=== PATIENT | female | born 1955 | race Caucasian/White ===

== ENCOUNTER 2016-05-24 16:03 | Emergency (ER) | payer OTHER ==
[2016-05-24 16:20] VITALS: BP 114/73
--- NOTE | 2016-05-24 18:08 | RAD ---
INDICATION: Right shoulder pain. TECHNIQUE: 3 views of the right shoulder were obtained. FINDINGS: The patient is status post right shoulder replacement surgery. The bones and prostheses are in normal alignment. No fracture is seen. There is widening of the acromioclavicular joint space possibly related to the patient's prior surgery or traumatic AC separation. IMPRESSION: 1. STATUS POST RIGHT SHOULDER ARTHROPLASTY. 2. WIDENING OF THE RIGHT ACROMIOCLAVICULAR JOINT NOTED.
[2016-05-24] MEDS ORDERED: Ketorolac INJ* 60 MG/2 ML VIAL IM ONE (18:57)
--- NOTE | 2016-05-24 19:42 | ED ---
Upper Extremity Pain - HPI Summary HPI Summary: 60 female presents with complains of right shoulder pain that occurred yesterday 05/24/16 while twisting and landing on it while getting into a chair. Patient had shoulder surgery in april and did not have any complications until now. She states the pain has caused her to lose ROM and point to her AC joint. She tried taking her prescribed percocet at home with little relief. She is here requesting an x-ray. She has an appointment with her orthopedic surgeon tomorrow morning. No other complaints denies weakness, numbness and tingling. No other complaints or injuries at this time. - History of Current Complaint Chief Complaint: EDExtremityUpper Stated Complaint: SHOULDER PAIN AFTER SURGERY Time Seen by Provider: 05/24/16 17:27 Hx Obtained From: Patient Mechanism Of Injury: Twisted Onset/Duration: Started Days Ago, Still Present Timing: Constant Severity Initially: Moderate Severity Currently: Moderate Pain Location: Shoulder Character: Aching, Throbbing, Stiffness Aggravating Factor(s): Movement Alleviating Factor(s): Rest Associated Signs & Symptoms: Positive: Negative - Allergies/Home Medications Allergies/Adverse Reactions: Allergies Allergy/AdvReac Type Severity Reaction Status Date / Time Bee Venom Allergy Severe Difficulty Verified 08/23/15 11:45 Breathing Adhesive Tape Allergy Hives Verified 08/23/15 11:45 Iodinated Contrast Media Allergy Rash Verified 08/23/15 11:45 [CONTRAST DYE] Penicillins Allergy Anaphylatic Verified 08/23/15 11:45 Shock Cephalexin AdvReac Diarrhea Verified 08/23/15 11:45 shrimp Allergy Severe Difficulty Uncoded 08/23/15 11:45 Breathing PMH/Surg Hx/FS Hx/Imm Hx Endocrine/Hematology History: Reports: Hx Anticoagulant Therapy Denies: Hx Diabetes, Hx Thyroid Disease Cardiovascular History: Reports: Hx Hypertension Denies: Hx Pacemaker/ICD Respiratory History: Denies: Hx Asthma, Hx Chronic Obstructive Pulmonary Disease (COPD) History: Denies: Hx Dialysis, Hx Renal Disease - ONE KIDNEY - DONATED TO FAMILY Musculoskeletal History: Denies: Hx Rheumatoid Arthritis, Hx Osteoporosis Sensory History: Denies: Hx Hearing Aid Neurological History: Denies: Hx Dementia, Hx Seizures Psychiatric History: Denies: Hx Panic Disorder, Hx Substance Abuse - Cancer History Cancer Type, 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 crainiotomy as well, spinal fusions, LEFT knee replacement 2007, bone grafts, nephrectomy ( DONATED A KIDNEY TO BROTHER); HEMORHOIDECTOMY - Immunization History Date of Tetanus Vaccine: [facility] Date of Influenza Vaccine: 12/2012 Infectious Disease History: Yes Infectious Disease History: Reports: Hx Hepatitis, Hx of Known/Suspected MRSA - thumb Denies: Hx Human Immunodeficiency Virus (HIV), History Other Infectious Disease, Traveled Outside the [place] in Last 30 Days - Social History Alcohol Use: Rare Substance Use Type: Reports: None Substance Use Comment - Amount & Last Used: HX of ETOH, opiate abuse, last use may 2014 Smoking Status (MU): Light Every Day Tobacco Smoker Type: Cigarettes Amount Used/How Often: 3-4 cig./day Review of Systems Constitutional: Negative Cardiovascular: Negative Respiratory: Negative Gastrointestinal: Negative Genitourinary: Negative Positive: Arthralgia, Myalgia, Decreased ROM - right shoulder Skin: Negative Neurological: Negative Psychological: Normal All Other Systems Reviewed And Are Negative: Yes Physical Exam Triage Information Reviewed: Yes Vital Signs On Initial Exam: Initial Vitals Temp Pulse Resp BP Pulse Ox 98.9 F 59 16 114/73 95 05/24/16 16:16 05/24/16 16:16 05/24/16 16:16 05/24/16 16:16 05/24/16 16:16 Vital Signs Reviewed: Yes Appearance: Positive: Well-Appearing, No Pain Distress, Well-Nourished, Pain Distress - mild when changing position or moving shoulder Skin: Positive: Warm, Skin Color Reflects Adequate Perfusion, Dry Head/Face: Positive: Normal Head/Face Inspection Eyes: Positive: Normal ENT: Positive: Hearing grossly normal Neck: Positive: Supple, Nontender Respiratory/Lung Sounds: Positive: Clear to Auscultation, Breath Sounds Present , Wheezes - throughout, patient is a smoker Cardiovascular: Positive: Normal, RRR, Pulses are Symmetrical in both Upper and Lower Extremities - 2+ radial pulses bilaterally Musculoskeletal: Positive: Limited @ - ROM with flexion extension abduction/ adduction of right shoulder due to pain. passive ROM also causes pain., Pain @ - right shoulder, Other - strenght of forearem and hands intact. sensation and skin intact. no obvious deformities or crepitus, step-off noted. AC joint is slightly more prominent when compared to the left shoudler. Negative: Interruption @, Edema Left, Edema Right Neurological: Positive: Normal, Sensory/Motor Intact, Alert, Oriented to Person Place, Time, CN Intact II-III, Reflexes Intact, NV Bundle Intact Distally, Normal Gait Psychiatric: Positive: Normal, Affect/Mood Appropriate Diagnostics - Vital Signs Vital Signs Temp Pulse Resp BP Pulse Ox 05/24/16 16:16 98.9 F 59 16 114/73 95 - Laboratory Lab Statement: Any lab studies that have been ordered have been reviewed, and results considered in the medical decision making process. - Radiology right shoulder x-ray Xray Interpretation: Positive (See Comments) - status post right shoulder arthroplasty widening of the right AC joint possibly related to prior shoulder surgery or traumatic ac seperation Radiology Interpretation Completed By: Radiologist Re-Evaluation - Re-Evaluation First Eval Re-Evaluation Time: 17:35 Change: Improved - patient felt some relief after toradol Course/Dx - Course Course Of Treatment: patient was given toradol for pain. x-ray obtained and possibly positive for AC joint speration unknown if it is due to recent shoulder arthroplasty. A CD was burned with images for orthopedic appointment patient has tomorrow. Went to give shoulder sling, CD and discharge paperwork however patient had left before recieving these. - Diagnoses Differential Diagnosis/HQI/PQRI: Positive: Arthritis, Fracture (Closed), Strain , Sprain, Other Provider Diagnoses: Shoulder pain, Acromioclavicular joint separation Discharge - Discharge Plan Condition: Stable Disposition: HOME Patient Education Materials: Shoulder Pain (ED), Acromioclavicular Separation ( GEN) Referrals: Horacio Bautista MD [Primary Care Provider] - Additional Instructions: Follow up with your orthopedic surgeon at your appointment tomorrow for further evaluation. Wear sling until then. Take your prescribed pain medication to help with pain. Ice and rest. If symptoms worsen please seek medical attention or return promptly.
== END 2016-05-24 20:25 | disposition home or self-care (01) ==
LOC: ED 16:03
DX: S43.101A Unspecified dislocation of right acromioclavicular joint, initial encounter (principal); M25.511 Pain in right shoulder; Z87.891 Personal history of nicotine dependence; W19.XXXA Unspecified fall, initial encounter; Y93.89 Activity, other specified; Y92.89 Other specified places as the place of occurrence of the external cause; Z88.0 Allergy status to penicillin
CPT/HCPCS: 96374; 99281; J1885

== ENCOUNTER 2016-08-29 20:21 | Emergency (ER) | payer OTHER ==
[2016-08-29] MEDS ORDERED: NS 0.9% 1000 ML* 1,000 ML IV ONE (21:23)
[2016-08-29 21:33] LABS: Hematocrit 37 % (35-47); Hemoglobin 12.3 g/dl (12.0-16.0); Mean Corpuscular HGB Conc 33 g/dl (31-36); Mean Corpuscular Hemoglobin 30 pg (27-31); Mean Corpuscular Volume 89 fL (80-97); Mean Platelet Volume 9 um3 (7.4-10.4); Red Blood Count 4.17 10^6/ul (4.0-5.4); Red Cell Distribution Width 14 % (10.5-15); White Blood Count 6.7 10^3/ul (3.5-10.8)
--- NOTE | 2016-08-29 21:45 | RAD ---
INDICATION: Altered mental status. Near-syncope. COMPARISON: October 07, 2014 TECHNIQUE: An AP portable view obtained at 2127 hours is submitted. FINDINGS: Bones/Soft Tissues: There are no acute bony findings. There is right shoulder arthroplasty. There is prior cervical fusion. Cardiomediastinal: The cardiomediastinal silhouette is normal. Lungs: There are no infiltrates. Pleura: There are no pleural effusions. Other: None IMPRESSION: NO ACTIVE DISEASE.
[2016-08-29 21:47] LABS: Troponin I 0.01 ng/mL (<0.04)
[2016-08-29 21:57] LABS: ALT 11 U/L (7-52); AST 18 U/L (13-39); Albumin 3.7 g/dL (3.2-5.2); Alkaline Phosphatase 60 U/L (34-104); Anion Gap 8 mmol/L (2-11); BUN/Creatinine Ratio 13.3 (8-20); Blood Urea Nitrogen 17 mg/dL (6-24); CO2 Carbon Dioxide 28 mmol/L (22-32); Calcium 9.1 mg/dL (8.6-10.3); Chloride 94 mmol/L (101-111); Creatine Kinase 89 U/L (10-223); EGFR African American 54.7 (>60); EGFR Non-African American 42.5 (>60); Globulin 2.7 g/dL (2-4); Glucose 89 mg/dL (70-100); Potassium 3.4 mmol/L (3.5-5.0); Sodium 130 mmol/L (133-145); TSH (Thyroid Stimulating Horm) 2.34 mcIU/mL (0.34-5.60); Total Protein 6.4 g/dL (6.4-8.9)
[2016-08-29 22:00] LABS: Acetaminophen < 15 mcg/mL; Alcohol 95 mg/dL (<10); Salicylate < 2.50 mg/dL (<30)
--- NOTE | 2016-08-29 22:08 | RAD ---
INDICATION: Dizziness COMPARISON: MRI brain July 29, 2015 TECHNIQUE: Noncontrast axial source images were acquired from the skull base to the vertex. FINDINGS: Ventricles/sulci: The ventricles and cisterns are normal in size and configuration for age. Brain parenchyma: There is no focal parenchymal finding, evidence of intracranial mass, or intracranial mass effect. Intracranial hemorrhage:None. Extra-axial spaces: There is a small meningioma adjacent to the left clinoid process better imaged on the earlier MRI. The lesion is stable. Calvarium: There is no calvarial fracture or other calvarial abnormality. Scalp: There is no evidence of scalp or extracalvarial soft tissue abnormality. Paranasal sinuses/mastoid: The paranasal sinuses and mastoid air cells are clear. Other: None. IMPRESSION: SMALL LEFT ANTERIOR CLINOID MENINGIOMA, UNCHANGED. NO ACUTE INTRACRANIAL FINDINGS.
[2016-08-30 00:07] VITALS: BP 133/89
--- NOTE | 2016-08-30 00:41 | ED ---
Nathaniel Reeves Benjamin, scribed for Moni Nieves MD on 08/29/16 at 2112 . Dizziness - HPI Summary HPI Summary: 60yo female comes to ED today for feeling near syncopal and low BP. Pt was at her PCP Dr. Garcia office for a regular BP check, but had to leave without being seen due to other obligations. Today, pt felt like passing out, and had measured BP of 74/42. Pt called Dr. Bautista and was advised to come to the ED for evaluation. Dr. Bautitsa stated pt is on Ramipril 2.5mg qd, atenolol 50qd, chlorthalidone 50qd. Pt admits ETOH ingestion today, states "one beer". - History Of Current Complaint Chief Complaint: EDDizziness Stated Complaint: LOW BP Time Seen by Provider: 08/29/16 20:35 Hx Obtained From: Patient, Family/Hr Associate - "housemate" Onset/Duration: Suddenly Timing: Constant Severity Initially: Severe Severity Currently: Moderate Character: Weak - "almost passed out" Aggravating Factor(s): Nothing Alleviating Factor(s): Nothing Associated Signs And Symptoms: Positive: Other: - low blood pressure at home "66 /40" - Risk Factors Cardiac Risk Factors: Hypertension, Smoking CVA Risk Factor: Hypertension, Smoking - Allergies/Home Medications Allergies/Adverse Reactions: Allergies Allergy/AdvReac Type Severity Reaction Status Date / Time Bee Venom Allergy Severe Difficulty Verified 08/23/15 11:45 Breathing Adhesive Tape Allergy Hives Verified 08/23/15 11:45 Iodinated Contrast Media Allergy Rash Verified 08/23/15 11:45 [CONTRAST DYE] Penicillins Allergy Anaphylatic Verified 08/23/15 11:45 Shock Cephalexin AdvReac Diarrhea Verified 08/23/15 11:45 shrimp Allergy Severe Difficulty Uncoded 08/23/15 11:45 Breathing PMH/Surg Hx/FS Hx/Imm Hx Previously Healthy: No - meningioma , on methadone Endocrine/Hematology History: Denies: Hx Diabetes, Hx Thyroid Disease Cardiovascular History: Reports: Hx Hypertension Denies: Hx Pacemaker/ICD Respiratory History: Denies: Hx Asthma, Hx Chronic Obstructive Pulmonary Disease (COPD) History: Denies: Hx Dialysis, Hx Renal Disease - ONE KIDNEY - DONATED TO FAMILY Musculoskeletal History: Denies: Hx Rheumatoid Arthritis, Hx Osteoporosis Sensory History: Denies: Hx Hearing Aid Neurological History: Denies: Hx Dementia, Hx Seizures Psychiatric History: Denies: Hx Panic Disorder, Hx Substance Abuse - Cancer History Cancer Type, 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 crainiotomy as well, spinal fusions, LEFT knee replacement 2007, bone grafts, nephrectomy ( DONATED A KIDNEY TO BROTHER); HEMORHOIDECTOMY - Immunization History Date of Tetanus Vaccine: [facility] Date of Influenza Vaccine: 12/2012 Infectious Disease History: No Infectious Disease History: Reports: Hx Hepatitis, Hx of Known/Suspected MRSA - thumb Denies: Hx Human Immunodeficiency Virus (HIV), History Other Infectious Disease, Traveled Outside the [place] in Last 30 Days - Social History Occupation: Disabled Lives: With Family - with roommate Alcohol Use: Rare Substance Use Type: Reports: None Substance Use Comment - Amount & Last Used: HX of ETOH, opiate abuse, last use may 2014 Smoking Status (MU): Light Every Day Tobacco Smoker Type: Cigarettes Amount Used/How Often: 3-4 cig./day Review of Systems Constitutional: Negative Eyes: Negative ENT: Negative Positive: Other - low BP Respiratory: Negative Gastrointestinal: Negative Genitourinary: Negative Musculoskeletal: Negative Skin: Negative Neurological: Other - dizziness Psychological: Normal All Other Systems Reviewed And Are Negative: Yes Physical Exam Triage Information Reviewed: Yes Vital Signs On Initial Exam: Initial Vitals Temp Pulse Resp BP Pulse Ox 98.2 F 52 16 94/51 95 08/29/16 20:23 08/29/16 20:23 08/29/16 20:23 08/29/16 20:23 08/29/16 20:23 Vital Signs Reviewed: Yes Appearance: Positive: No Pain Distress, Well-Nourished, Ill-Appearing - pt prefers eyes closed Skin: Positive: Skin Color Reflects Adequate Perfusion Head/Face: Positive: Normal Head/Face Inspection Eyes: Positive: Conjunctiva Clear ENT: Positive: Hearing grossly normal. Negative: Muffled/hoarse voice Neck: Positive: Supple Respiratory/Lung Sounds: Positive: Clear to Auscultation, Breath Sounds Present Cardiovascular: Positive: Pulses are Symmetrical in both Upper and Lower Extremities, Bradycardia. Negative: Murmur, Rub, Leg Edema Left, Leg Edema Right Abdomen Description: Positive: Nontender, Soft. Negative: Distended, Guarding, McBurney's Point Tenderness, Peritoneal Signs, Pulsatile Mass Musculoskeletal: Positive: Strength/ROM Intact. Negative: Edema Left, Edema Right Neurological: Positive: Sensory/Motor Intact, Alert, Oriented to Person Place, Time, CN Intact II-III - prefers eyes closed,. Negative: Facial Droop, Focal Deficit @, Slurred Speech Psychiatric: Positive: Normal Diagnostics - Vital Signs Vital Signs Temp Pulse Resp BP Pulse Ox 08/29/16 20:34 98.0 F 50 17 103/52 95 08/29/16 20:23 98.2 F 52 16 94/51 95 - Laboratory Lab Results: Lab Results 08/29/16 08/29/16 08/29/16 Range/Units 20:38 20:38 20:38 WBC 6.7 (3.5-10.8) 10^3/ul RBC 4.17 (4.0-5.4) 10^6/ul Hgb 12.3 (12.0-16.0) g/dl Hct 37 (35-47) % MCV 89 (80-97) fL MCH 30 (27-31) pg MCHC 33 (31-36) g/dl RDW 14 (10.5-15) % Plt Count 221 (150-450) 10^3/ul MPV 9 (7.4-10.4) um3 Neut % (Auto) 54.1 (38-83) % Lymph % (Auto) 32.1 (25-47) % [place] % (Auto) 8.0 (1-9) % Eos % (Auto) 5.1 (0-6) % Baso % (Auto) 0.7 (0-2) % Absolute Neuts (auto) 3.6 (1.5-7.7) 10^3/ul Absolute Lymphs (auto) 2.1 (1.0-4.8) 10^3/ul Absolute Monos (auto) 0.5 (0-0.8) 10^3/ul Absolute Eos (auto) 0.3 (0-0.6) 10^3/ul Absolute Basos (auto) 0 (0-0.2) 10^3/ul Absolute Nucleated RBC 0.01 10^3/ul Nucleated RBC % 0.1 INR (Anticoag Therapy) (0.89-1.11) Sodium 130 L (133-145) mmol/L Potassium 3.4 L (3.5-5.0) mmol/L Chloride 94 L (101-111) mmol/L Carbon Dioxide 28 (22-32) mmol/L Anion Gap 8 (2-11) mmol/L BUN 17 (6-24) mg/dL Creatinine 1.28 H (0.51-0.95) mg/dL Est GFR ( Amer) 54.7 (>60) Est GFR (Non-Af Amer) 42.5 (>60) BUN/Creatinine Ratio 13.3 (8-20) Glucose 89 (70-100) mg/dL Lactic Acid 1.2 (0.5-2.0) mmol/L Calcium 9.1 (8.6-10.3) mg/dL Magnesium 2.0 (1.9-2.7) mg/dL Total Bilirubin 0.40 (0.2-1.0) mg/dL AST 18 (13-39) U/L ALT 11 (7-52) U/L Alkaline Phosphatase 60 (34-104) U/L Ammonia (16-53) mol/L Total Creatine Kinase 89 (10-223) U/L Troponin I 0.01 (<0.04) ng/mL Total Protein 6.4 (6.4-8.9) g/dL Albumin 3.7 (3.2-5.2) g/dL Globulin 2.7 (2-4) g/dL Albumin/Globulin Ratio 1.4 (1-3) TSH 2.34 (0.34-5.60) mcIU/mL Salicylates < 2.50 (<30) mg/dL Acetaminophen < 15 mcg/mL Serum Alcohol 95 H (<10) mg/dL 08/29/16 08/29/16 Range/Units 20:38 20:38 WBC (3.5-10.8) 10^3/ul RBC (4.0-5.4) 10^6/ul Hgb (12.0-16.0) g/dl Hct (35-47) % MCV (80-97) fL MCH (27-31) pg MCHC (31-36) g/dl RDW (10.5-15) % Plt Count (150-450) 10^3/ul MPV (7.4-10.4) um3 Neut % (Auto) (38-83) % Lymph % (Auto) (25-47) % [place] % (Auto) (1-9) % Eos % (Auto) (0-6) % Baso % (Auto) (0-2) % Absolute Neuts (auto) (1.5-7.7) 10^3/ul Absolute Lymphs (auto) (1.0-4.8) 10^3/ul Absolute Monos (auto) (0-0.8) 10^3/ul Absolute Eos (auto) (0-0.6) 10^3/ul Absolute Basos (auto) (0-0.2) 10^3/ul Absolute Nucleated RBC 10^3/ul Nucleated RBC % INR (Anticoag Therapy) 0.94 (0.89-1.11) Sodium (133-145) mmol/L Potassium (3.5-5.0) mmol/L Chloride (101-111) mmol/L Carbon Dioxide (22-32) mmol/L Anion Gap (2-11) mmol/L BUN (6-24) mg/dL Creatinine (0.51-0.95) mg/dL Est GFR ( Amer) (>60) Est GFR (Non-Af Amer) (>60) BUN/Creatinine Ratio (8-20) Glucose (70-100) mg/dL Lactic Acid (0.5-2.0) mmol/L Calcium (8.6-10.3) mg/dL Magnesium (1.9-2.7) mg/dL Total Bilirubin (0.2-1.0) mg/dL AST (13-39) U/L ALT (7-52) U/L Alkaline Phosphatase (34-104) U/L Ammonia 53 (16-53) mol/L Total Creatine Kinase (10-223) U/L Troponin I (<0.04) ng/mL Total Protein (6.4-8.9) g/dL Albumin (3.2-5.2) g/dL Globulin (2-4) g/dL Albumin/Globulin Ratio (1-3) TSH (0.34-5.60) mcIU/mL Salicylates (<30) mg/dL Acetaminophen mcg/mL Serum Alcohol (<10) mg/dL Result Diagrams: 08/29/16 20:38 08/29/16 20:38 Lab Statement: Any lab studies that have been ordered have been reviewed, and results considered in the medical decision making process. - EKG 2038. Cardiac Rate: Bradycardia - 49bpm EKG Rhythm: Sinus Bradycardia ST Segment: Normal Re-Evaluation - Re-Evaluation First Eval Re-Evaluation Time: 00:10 - no chest pain, SOB, BP 133/79. Wants to go home Change: Improved Dizzy Course/Dx - Course Course Of Treatment: Reviewed medication lists and known allergies. EKG at 2038 : sinus cindy 49bpm. 60yo female comes to ED today for feeling near syncopal and low BP. Pt was at her PCP Dr. Garcia office for a regular BP check, but had to leave without being seen due to other obligations. Today, pt felt like passing out, and had measured BP of 74/42. Pt called Dr. Bautista and was advised to come to the ED for evaluation. In ED BP is 94/51, then slowly increases. Pt had no CP or SOB while in ED. EtOH 95, CT brain shows stable meningioma. Pt feels back to her usual self. I discussed with Dr. Bautista by phone, who suggests that pt may DC her atenolol and follow up with him in the office. - Diagnoses Differential Diagnosis/HQI/PQRI: Coronary Artery Disease, CVA, Medication Reaction, Metabolic Abnormality, Vasovagal Reaction Provider Diagnoses: Near syncope, Hypotension - Provider Notifications Discussed Care Of Patient With: Horacio Bautista - He provided background hx and advised may stop atenolol. Time Discussed With Above Provider: 22:02 Discharge - Discharge Plan Condition: Stable Disposition: HOME Patient Education Materials: Hypotension (ED), Near Syncope (ED) Referrals: Horacio Bautista MD [Primary Care Provider] - 2 Days Additional Instructions: Dr. Bautista recommends that you stop the atenolol and follow up in his office in the next few days. Return to the ER if you have new or worsening symptoms. The documentation as recorded by the Nathaniel cummings Benjamin accurately reflects the service I personally performed and the decisions made by me, Moni Nieves MD.
== END 2016-08-30 00:43 | disposition home or self-care (01) ==
LOC: ED 20:21
DX: R55 Syncope and collapse (principal); I95.9 Hypotension, unspecified; R42 Dizziness and giddiness; F17.210 Nicotine dependence, cigarettes, uncomplicated
CPT/HCPCS: 36415; 70450; 71010; 80053; 80320; 80329; 82140; 82550; 83605; 83735; 84443; 84484; 85025; 85610; 87040; 93005; 99282; G0480

== ENCOUNTER 2016-11-13 13:23 | Emergency (ER) | payer OTHER ==
--- NOTE | 2016-11-13 14:17 | UC ---
Minor Trauma HPI - HPI Summary HPI Summary: Patient presents with a past medical history of chronic methadone and percocet RX for chronic pain. She presents today with history of falls. She cannot states what is causing the falls, and she reports no defense mechanisms. She cannot states if she passes out,or was knocked out. She presents today with abrasion to face, nose and chin with associated right jaw pain that radiates to the right ear. She also complains of neck pain that is chronic and worse following the fall. She complains of headache that came on gradually following the fall and has been constant, and is worse with movement, and improves with rest, and associated nausea. She states she has been doubling up on her percocet for pain control. She complains of generalized discomfort from the fall. - History of Current Complaint Chief Complaint: UCHeadInjury Stated Complaint: FACIAL INJURY Time Seen by Provider: 11/13/16 13:52 Hx Obtained From: Patient ?: No Onset/Duration: Sudden Onset Severity Initially: Severe Severity Currently: Severe Mechanism Of Injury: Blunt Trauma, Direct Blow, Fall From A Standing Position Aggravating Factor(s): Movement Alleviating Factor(s): Nothing Associated Signs And Symptoms: Positive: Ecchymosis, Swelling - Risk Factors Penetrating Injury Risk Factors: Negative Compartment Syndrome Risk Factors: Pain - Allergies/Home Medications Allergies/Adverse Reactions: Allergies Allergy/AdvReac Type Severity Reaction Status Date / Time Bee Venom Allergy Severe Difficulty Verified 11/13/16 13:34 Breathing Adhesive Tape Allergy Hives Verified 11/13/16 13:34 Iodinated Contrast Media Allergy Rash Verified 11/13/16 13:34 [CONTRAST DYE] Penicillins Allergy Anaphylatic Verified 11/13/16 13:34 Shock Cephalexin AdvReac Diarrhea Verified 11/13/16 13:34 shrimp Allergy Severe Difficulty Uncoded 11/13/16 13:34 Breathing PMH/Surg Hx/FS Hx/Imm Hx Previously Healthy: Yes Psychological History: Depression Other History Of: Anticoagulant Therapy - Surgical History Surgical History: Yes Surgery Procedure, Year, and Place: right shoulder replacement. removal of scar tissue and bone spurs of right shoulder. multiple facial surgeries from [facility] at 4 yoa. crainiotomy as well. spinal fusions. LEFT knee replacement 2007. bone grafts. nephrectomy ( DONATED A KIDNEY TO BROTHER). HEMORHOIDECTOMY - Family History Known Family History: Positive: Unknown - Social History Occupation: Disabled Lives: Alone Alcohol Use: Weekly Substance Use Type: Marijuana Substance Use Comment - Amount & Last Used: HX of ETOH, opiate abuse, last use may 2014 Smoking Status (MU): Light Every Day Tobacco Smoker Type: Cigarettes, Smokeless Tobacco Amount Used/How Often: 3-4 cig./day Household Exposure Type: Cigarettes Review of Systems Constitutional: Negative Skin: Bruising, Other Eyes: Negative ENT: Negative Respiratory: Negative Cardiovascular: Negative Gastrointestinal: Negative Genitourinary: Negative Motor: Negative Musculoskeletal: Arthralgia, Myalgia Neurological: Headache All Other Systems Reviewed And Are Negative: Yes Physical Exam Triage Information Reviewed: Yes Appearance: Pain Distress Vital Signs: Initial Vital Signs Temp 98.4 F 11/13/16 13:27 Pulse 49 11/13/16 13:27 Resp 16 11/13/16 13:27 BP 134/67 11/13/16 13:27 Pulse Ox 97 11/13/16 13:27 Vital Signs Reviewed: Yes Eye Exam: Normal ENT Exam: Normal ENT: Positive: Other: - soft tissue swelling at bridge of nose, abrasion over nose, dried and with ointment applid. No obvious septal hematoma. Tenderness to palpation at the right tmj. Neck exam: Normal, Other - vertebra inspected no deformities, no step offs, bruising or edema noted. tenderness to palpation midline vertebra, and b/l sides of neck. rom limited with flexion to 10 degrees, extension to 20 degrees.upper extremity strength testing equal3/5. sensort without deficits. Respiratory Exam: Normal Cardiovascular Exam: Normal Abdominal Exam: Normal Musculoskeletal: Positive: Other: - generalized discomfort. Skin: Positive: Other - abrasion on nose. Minor Trauma Course/Dx - Course Course Of Treatment: Patient presents following fall on 11/12/16, no defense mechanism noted or seen based on hpi, and patients injuries. EKG was bradycarida and BP were 151/69. Patient has extensive facial and cervical trauma with previous cervical fusion. Given her recurrent falls, with no clear history as to why, and her vague recollection of the events raises concern for the the differential diagnoses of near-syncope or syncope. Ther er attending was contacted report given and patient transferred via [place]. At the time of discharge the patient was in stable condition and in agreement with the transfer. - Differential Dx/Diagnosis Differential Diagnosis/HQI/PQRI: Other - syncope fall facial anc cervical trauma Provider Diagnoses: near syncope. syncope. facial and cervial trauma. headache. neck pain Discharge - Discharge Plan Condition: Stable Disposition: TRANS [facility] Patient Education Materials: Acute Headache (ED), Fall Prevention (ED), Neck Pain (ED) Referrals: Horacio Bautista MD [Primary Care Provider] -
[2016-11-13 14:23] VITALS: BP 151/69
== END 2016-11-13 14:44 | disposition short-term general hospital (02) ==
LOC: UCEAST 13:23
DX: R55 Syncope and collapse (principal); S00.81XA Abrasion of other part of head, initial encounter; S00.31XA Abrasion of nose, initial encounter; W19.XXXA Unspecified fall, initial encounter; Z91.81 History of falling; Y93.9 Activity, unspecified; Y92.9 Unspecified place or not applicable; R51 Headache; M54.2 Cervicalgia; R11.0 Nausea; R68.84 Jaw pain; Z79.01 Long term (current) use of anticoagulants; Z96.611 Presence of right artificial shoulder joint; Z96.652 Presence of left artificial knee joint; Z88.1 Allergy status to other antibiotic agents; Z91.030 Bee allergy status; Z91.041 Radiographic dye allergy status; Z88.0 Allergy status to penicillin; Z91.048 Other nonmedicinal substance allergy status; F17.210 Nicotine dependence, cigarettes, uncomplicated
CPT/HCPCS: 93005; 99213; G0463

== ENCOUNTER 2016-11-13 15:11 | Emergency (ER) | payer OTHER ==
[2016-11-13 15:39] VITALS: BP 166/75
[2016-11-13 15:45] LABS: Hematocrit 37 % (35-47); Hemoglobin 12.6 g/dl (12.0-16.0); Mean Corpuscular HGB Conc 34 g/dl (31-36); Mean Corpuscular Hemoglobin 31 pg (27-31); Mean Corpuscular Volume 91 fL (80-97); Mean Platelet Volume 8 um3 (7.4-10.4); Red Blood Count 4.09 10^6/ul (4.0-5.4); Red Cell Distribution Width 14 % (10.5-15); White Blood Count 7.9 10^3/ul (3.5-10.8)
[2016-11-13 16:05] LABS: Troponin I 0.02 ng/mL (<0.04)
[2016-11-13 16:08] LABS: Albumin 3.8 g/dL (3.2-5.2); BUN/Creatinine Ratio 19.4 (8-20); Calcium 9.1 mg/dL (8.6-10.3); EGFR African American 74.2 (>60); EGFR Non-African American 57.7 (>60); Globulin 2.6 g/dL (2-4); Magnesium 1.9 mg/dL (1.9-2.7); Total Bilirubin 0.5 mg/dL (0.2-1.0); Total Protein 6.4 g/dL (6.4-8.9)
--- NOTE | 2016-11-13 16:12 | RAD ---
INDICATION: Fall. Intracranial injury. COMPARISON: CT brain August 29, 2016 TECHNIQUE: Noncontrast axial source images were acquired from the skull base to the vertex. FINDINGS: Ventricles/sulci: The ventricles and cisterns are normal in size and configuration for age. Brain parenchyma: There is no focal parenchymal finding, evidence of intracranial mass, or intracranial mass effect. Intracranial hemorrhage:None. Extra-axial spaces: There are no abnormal extra axial fluid collections or evidence of new extra-axial mass. 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 Scalp: There is no evidence of scalp or extracalvarial soft tissue abnormality. Paranasal sinuses/mastoid: The paranasal sinuses and mastoid air cells are clear. Other: None. IMPRESSION: No acute intracranial findings. Small left anterior clinoid meningioma, unchanged
--- NOTE | 2016-11-13 16:15 | RAD ---
Indication: Fall, facial injury including mandible pain. CT of the facial bones was obtained in the axial plane. Sagittal and coronal reconstructed images were obtained. Comparison is made with previous exam dated May 29, 2013. Again noted is a defect in the right upper maxilla extending into the right nostril and alveolar bone. There is presumed dental hardware and prior injury. This is unchanged from previous exam. The pterygoid plates are grossly unremarkable. Defects in the left nasal arch are unchanged from previous exam. Zygomatic arch is intact. Mucosal thickening of the maxillary sinuses is noted. The mandible demonstrates no fracture. The visualized cervical spine is unremarkable. The visualized orbits including the lamina preparation and lateral wall of the orbits are intact. IMPRESSION: No fracture is definitively identified although there is a bony defect in the right anterior maxilla extending to the alveolar bone and to the right nostril. Dentures are noted. Overall no changes noted since previous exam.
[2016-11-13 16:24] LABS: TSH (Thyroid Stimulating Horm) 0.75 mcIU/mL (0.34-5.60)
--- NOTE | 2016-11-13 16:27 | RAD ---
Indication: Fall, neck injury. CT of the cervical spine was obtained in the axial plane. Sagittal and coronal reconstructed images were obtained. The skull base demonstrates no evidence of fracture. Mastoid air cells demonstrate some fluid in the left mastoid air cells. C1 ring is intact. No fracture is noted. Heterotopic ossification noted superior to the C1 vertebra. The vertebral bodies otherwise appear normal in height. No compression fracture is noted. Anterior fusion of C6-C7 is noted. Spondylitic ridge with degenerative disc disease is noted at C5-C6, C6-C7 and C7-T1. No fracture is identified. Spinal canal appears to be intact. IMPRESSION: No fracture of the cervical spine is noted. Anterior fusion of C6-C7 is noted.
[2016-11-13] MEDS ORDERED: Loperamide CAP* 2 MG PO ONE (16:43)
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
== END 2016-11-13 17:00 | disposition home or self-care (01) ==
LOC: ED 15:11
DX: S16.1XXA Strain of muscle, fascia and tendon at neck level, initial encounter (principal); R19.7 Diarrhea, unspecified; W18.40XA Slipping, tripping and stumbling without falling, unspecified, initial encounter; Y93.9 Activity, unspecified; Y92.9 Unspecified place or not applicable; S06.0X9A Concussion with loss of consciousness of unspecified duration, initial encounter; F19.20 Other psychoactive substance dependence, uncomplicated
CPT/HCPCS: 36415; 70450; 70486; 72125; 80053; 83605; 83735; 84443; 84484; 85025; 93005; 99282; A9270-GY

== ENCOUNTER 2018-08-18 13:13 | Emergency (ER) | payer OTHER ==
[2018-08-18] MEDS ORDERED: Aspirin 81 mg CHEW TAB* 81 MG TAB.CHEW PO ONE (14:24)
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
[2018-08-18] MEDS ORDERED: Nitroglycerin TAB 0.4 MG* 0.4 MG TAB SL PRN (14:49)
[2018-08-18 15:14] LABS: ABS Lymphocytes 0.8 10^3/ul (1.0-4.8); ABS Monocytes 0.2 10^3/ul (0-0.8); ABS Neutrophils 4.8 10^3/ul (1.5-7.7); Eosinophil % 0.5 %; Hematocrit 39 % (35-47); Hemoglobin 13.2 g/dL (12.0-16.0); Lymphocyte % 13.7 %; Mean Corpuscular HGB Conc 34 g/dL (31-36); Mean Corpuscular Hemoglobin 29 pg (27-31); Mean Corpuscular Volume 86 fL (80-97); Mean Platelet Volume 8.2 fL (7.4-10.4); Platelet Count 287 10^3/uL (150-450); Red Blood Count 4.56 10^6 /uL (3.70-4.87); Red Cell Distribution Width 14 % (10-15); White Blood Count 5.9 10^3/uL (3.5-10.8)
[2018-08-18 15:26] LABS: Albumin 4.1 g/dL (3.2-5.2); Albumin/Globulin Ratio 1.2 (1-3); BUN/Creatinine Ratio 18.8 (8-20); Calcium 9.9 mg/dL (8.6-10.3); EGFR Non-African American 67.8 (>60); Globulin 3.5 g/dL (2-4); Magnesium 1.9 mg/dL (1.9-2.7); Potassium 3.8 mmol/L (3.5-5.0); Total Bilirubin 0.3 mg/dL (0.2-1.0); Total Protein 7.6 g/dL (6.4-8.9)
[2018-08-18 15:31] LABS: CKMB ng/mL 2.6 ng/mL (0.6-6.3)
[2018-08-18 15:52] LABS: TSH (Thyroid Stimulating Horm) 0.99 mcIU/mL (0.34-5.60)
[2018-08-18] MEDS ORDERED: Hydrochlorothiazide TAB* 25 MG PO ONE (16:15)
[2018-08-18] MEDS ORDERED: Lisinopril TAB* 10 MG PO ONE (16:15)
[2018-08-18 18:29] VITALS: BP 145/91
[2018-08-19] MEDS ORDERED: Lisinopril/HCTZ 10/12.5(NF) TAB PO ONE (15:50)
== END 2018-08-18 18:29 | disposition home or self-care (01) ==
LOC: ED 13:13
DX: R07.89 Other chest pain (principal); I10 Essential (primary) hypertension; F17.210 Nicotine dependence, cigarettes, uncomplicated; Z79.899 Other long term (current) drug therapy
CPT/HCPCS: 36415; 71045; 80053; 82550; 82553; 83605; 83735; 83880; 84443; 84484; 85025; 85730; 93005; 99283; A9270-GY

== ENCOUNTER 2018-09-15 11:30 | Emergency (ER) | payer OTHER ==
[2018-09-15 13:41] VITALS: BP 127/66
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
== END 2018-09-15 13:40 | disposition home or self-care (01) ==
LOC: ED 11:30
DX: R07.81 Pleurodynia (principal); Z79.01 Long term (current) use of anticoagulants; Z88.0 Allergy status to penicillin; I10 Essential (primary) hypertension; F17.210 Nicotine dependence, cigarettes, uncomplicated; Z86.011 Personal history of benign neoplasm of the brain
CPT/HCPCS: 99282

== ENCOUNTER 2018-09-21 14:10 | Emergency (ER) | payer OTHER ==
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
[2018-09-21 15:32] VITALS: BP 128/80
== END 2018-09-21 16:50 | disposition home or self-care (01) ==
LOC: UCEAST 14:10
DX: S32.10XA Unspecified fracture of sacrum, initial encounter for closed fracture (principal); W01.0XXA Fall on same level from slipping, tripping and stumbling without subsequent striking against object, initial encounter; Y92.9 Unspecified place or not applicable; I10 Essential (primary) hypertension; F32.9 Major depressive disorder, single episode, unspecified; B19.20 Unspecified viral hepatitis C without hepatic coma; F17.210 Nicotine dependence, cigarettes, uncomplicated; Z88.0 Allergy status to penicillin
CPT/HCPCS: 72220; 99212; G0463

== ENCOUNTER → 2018-12-03 18:25 | Emergency (ER) | payer OTHER ==
[~2018-12-03 18:25] MED LIST: NS 0.9% 1000 ML** 1,000 ML IV ONE; fentaNYL* 50 MCG/ML 2 ML VIAL (100 MCG VIAL) IV SLOW PU ONE
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
[2018-12-03 21:05] LABS: ABS Eosinophils 0.2 10^3/ul (0-0.6); ABS Lymphocytes 0.9 10^3/ul (1.0-4.8); ABS Monocytes 0.5 10^3/ul (0-0.8); ABS Neutrophils 5.3 10^3/ul (1.5-7.7); Eosinophil % 2.2 %; Hematocrit 34 % (35-47); Hemoglobin 11.4 g/dL (12.0-16.0); Lymphocyte % 12.8 %; Mean Corpuscular HGB Conc 33 g/dL (31-36); Mean Corpuscular Hemoglobin 29 pg (27-31); Mean Corpuscular Volume 86 fL (80-97); Mean Platelet Volume 8.1 fL (7.4-10.4); Nucleated Red Blood Cells % 0.1; Platelet Count 299 10^3/uL (150-450); Red Cell Distribution Width 15 % (10-15); White Blood Count 6.9 10^3/uL (3.5-10.8)
[2018-12-03 21:07] LABS: INR 1.08 (0.82-1.09)
[2018-12-03 21:15] LABS: Albumin 3.6 g/dL (3.2-5.2); Albumin/Globulin Ratio 1.1 (1-3); Calcium 8.8 mg/dL (8.6-10.3); EGFR African American 86.4 (>60); EGFR Non-African American 71.4 (>60); Globulin 3.3 g/dL (2-4); Potassium 3.5 mmol/L (3.5-5.0); Total Bilirubin 0.2 mg/dL (0.2-1.0); Total Protein 6.9 g/dL (6.4-8.9)
[2018-12-04 01:05] VITALS: BP 125/69
== END | disposition short-term general hospital (02) ==
LOC: ED 18:25
DX: S02.402A Zygomatic fracture, unspecified side, initial encounter for closed fracture (principal); S09.90XA Unspecified injury of head, initial encounter; W01.0XXA Fall on same level from slipping, tripping and stumbling without subsequent striking against object, initial encounter; Y92.9 Unspecified place or not applicable; I10 Essential (primary) hypertension; F17.210 Nicotine dependence, cigarettes, uncomplicated; Z79.82 Long term (current) use of aspirin; Z79.899 Other long term (current) drug therapy; Z88.0 Allergy status to penicillin; R42 Dizziness and giddiness
CPT/HCPCS: 36415; 70450; 71250; 72125; 74176; 80053; 80320; 83605; 85025; 85610; 96361; 96374; 99283; G0480; J3010

== ENCOUNTER 2020-06-08 08:48 | Inpatient (IN) ==
[2020-06-09] MEDS ORDERED: Magnesium Hydroxide LIQ 30 ML UDC PO PRN (15:24)
[2020-06-09] MEDS: Enoxaparin 30 MG/0.3 ML SYR SUBCUT SCH (20:46)
[2020-06-09] MEDS ORDERED: diPHENhydraMINE 25 mg TAB PO ONE (22:28)
[2020-06-10 07:18] LABS: Albumin 3.2 g/dL (3.2-5.2); Albumin/Globulin Ratio 1.1 (1-3); BUN/Creatinine Ratio 14.3 (8-20); Calcium 8.7 mg/dL (8.6-10.3); EGFR African American 101.9 (>60); EGFR Non-African American 84.2 (>60); Globulin 2.8 g/dL (2-4); Potassium 3.8 mmol/L (3.5-5.0); Total Bilirubin 0.5 mg/dL (0.2-1.0)
[2020-06-10 07:20] LABS: ABS Eosinophils 0.3 10^3/ul (0-0.6); ABS Lymphocytes 1.4 10^3/ul (1.0-4.8); ABS Monocytes 0.5 10^3/ul (0-0.8); ABS Neutrophils 3.5 10^3/ul (1.5-7.7); Eosinophil % 5.5 %; Hematocrit 26 % (35-47); Hemoglobin 8.8 g/dL (12.0-16.0); Lymphocyte % 23.5 %; Mean Corpuscular HGB Conc 34 g/dL (31-36); Mean Corpuscular Hemoglobin 31 pg (27-31); Mean Corpuscular Volume 91 fL (80-97); Mean Platelet Volume 8.7 fL (7.4-10.4); Platelet Count 247 10^3/uL (150-450); Red Blood Count 2.83 10^6 /uL (3.70-4.87); Red Cell Distribution Width 14 % (10-15); White Blood Count 5.8 10^3/uL (3.5-10.8)
[2020-06-10] MEDS: Enoxaparin 30 MG/0.3 ML SYR SUBCUT SCH ×2 (07:28→20:49)
[2020-06-10] MEDS ORDERED: Enoxaparin 30 MG/0.3 ML SYR SUBCUT SCH (09:00)
[2020-06-10] MEDS ORDERED: Nicotine GUM 2MG FRUIT FLAVOR PO PRN (15:39)
[2020-06-10] MEDS: Senna TAB 8.6 mg TAB PO PRN (20:47)
[2020-06-11] MEDS: diPHENhydraMINE 25 mg TAB PO PRN (00:40)
[2020-06-11] MEDS: Enoxaparin 30 MG/0.3 ML SYR SUBCUT SCH ×2 (07:17→20:36)
[2020-06-12] MEDS: Enoxaparin 30 MG/0.3 ML SYR SUBCUT SCH ×2 (09:18→20:37)
[2020-06-13] MEDS: Enoxaparin 30 MG/0.3 ML SYR SUBCUT SCH ×2 (07:43→20:14)
[2020-06-14] MEDS: Enoxaparin 30 MG/0.3 ML SYR SUBCUT SCH ×2 (11:14→21:14)
[2020-06-15] MEDS: Enoxaparin 30 MG/0.3 ML SYR SUBCUT SCH ×2 (08:10→21:07)
[2020-06-16] MEDS: Enoxaparin 30 MG/0.3 ML SYR SUBCUT SCH ×2 (07:23→20:59)
[2020-06-16] MEDS: Senna TAB 8.6 mg TAB PO PRN (21:00)
[2020-06-17 06:25] LABS: Hematocrit 31 % (35-47); Hemoglobin 10.1 g/dL (12.0-16.0); Mean Corpuscular HGB Conc 33 g/dL (31-36); Mean Corpuscular Hemoglobin 30 pg (27-31); Mean Corpuscular Volume 92 fL (80-97); Mean Platelet Volume 8.3 fL (7.4-10.4); Platelet Count 356 10^3/uL (150-450); Red Blood Count 3.33 10^6 /uL (3.70-4.87); Red Cell Distribution Width 14 % (10-15); White Blood Count 4.4 10^3/uL (3.5-10.8)
[2020-06-17 06:40] LABS: Nucleated Red Blood Cells % 0.1
[2020-06-17 06:45] LABS: ABS Eosinophils 0.3 10^3/ul (0-0.6); ABS Lymphocytes 1.3 10^3/ul (1.0-4.8); ABS Monocytes 0.4 10^3/ul (0-0.8); ABS Neutrophils 2.3 10^3/ul (1.5-7.7); Eosinophil % 6.3 %; Lymphocyte % 29.9 %
[2020-06-17 06:48] LABS: Albumin 3.6 g/dL (3.2-5.2); Albumin/Globulin Ratio 1.2 (1-3); Calcium 9.3 mg/dL (8.6-10.3); EGFR African American 74.4 (>60); EGFR Non-African American 61.5 (>60); Globulin 2.9 g/dL (2-4); Potassium 4.3 mmol/L (3.5-5.0); Total Bilirubin 0.3 mg/dL (0.2-1.0); Total Protein 6.5 g/dL (6.4-8.9)
[2020-06-17] MEDS: Enoxaparin 30 MG/0.3 ML SYR SUBCUT SCH ×2 (07:31→21:03)
[2020-06-18] MEDS: Enoxaparin 30 MG/0.3 ML SYR SUBCUT SCH ×2 (08:57→20:18)
[2020-06-19] MEDS: Enoxaparin 30 MG/0.3 ML SYR SUBCUT SCH ×2 (09:42→19:42)
[2020-06-19] MEDS: Senna TAB 8.6 mg TAB PO PRN (19:46)
[2020-06-20] MEDS: Enoxaparin 30 MG/0.3 ML SYR SUBCUT SCH ×2 (11:17→20:50)
[2020-06-20] MEDS: diPHENhydraMINE 25 mg TAB PO PRN (22:14)
[2020-06-21] MEDS: Enoxaparin 30 MG/0.3 ML SYR SUBCUT SCH ×2 (08:06→21:18)
[2020-06-22] MEDS: diPHENhydraMINE 25 mg TAB PO PRN (03:09)
[2020-06-22 06:51] VITALS: BP 141/74
[2020-06-22] MEDS: Enoxaparin 30 MG/0.3 ML SYR SUBCUT SCH (08:41)
== END 2020-06-22 11:24 | DRG 860 ==
LOC: PMRU 06-09 15:23
PROVIDERS: ADMIT Physical Medicine & Rehabilitation; ATTEND Physical Medicine & Rehabilitation

== ENCOUNTER 2021-11-05 02:08 | Observation (INO) ==
[2021-11-05 03:05] LABS: ABS Lymphocytes 0.7 10^3/ul (1.0-4.8); ABS Monocytes 0.5 10^3/ul (0-0.8); ABS Neutrophils 3.6 10^3/ul (1.5-7.7); Eosinophil % 0.6 %; Hematocrit 32 % (35-47); Hemoglobin 10.8 g/dL (12.0-16.0); Lymphocyte % 14.8 %; Mean Corpuscular HGB Conc 34 g/dL (31-36); Mean Corpuscular Hemoglobin 31 pg (27-31); Mean Corpuscular Volume 91 fL (80-97); Mean Platelet Volume 9.1 fL (7.4-10.4); Platelet Count 138 10^3/uL (150-450); Red Blood Count 3.55 10^6 /uL (3.70-4.87); Red Cell Distribution Width 14 % (10-15); White Blood Count 4.8 10^3/uL (3.5-10.8)
[2021-11-05 03:12] LABS: INR 1.01 (0.89-1.11)
[2021-11-05 03:28] LABS: Albumin 3.5 g/dL (3.2-5.2); Albumin/Globulin Ratio 1.6 (1-3); C Reactive Protein 35.33 mg/L (<8.01); Calcium 8.5 mg/dL (8.6-10.3); Globulin 2.2 g/dL (2-4); Potassium 3.9 mmol/L (3.5-5.0); Total Bilirubin 0.3 mg/dL (0.2-1.0); Total Protein 5.7 g/dL (6.4-8.9)
[2021-11-05 03:52] LABS: eGFR CKD-EPI 37.3 (>60)
[2021-11-05 04:32] LABS: High Sensitivity Troponin 1 Hr 98 pg/mL (<15)
[2021-11-05] MEDS ORDERED: Remdesivir 100 mg Vial 200 MG in NS 0.9% 250 ml 210 ML IV ONE (11:00)
[2021-11-05] MEDS ORDERED: oxyCODONE/Acetamin 5/325 mg TAB PO PRN (11:55)
[2021-11-05] MEDS: Enoxaparin 40 MG/0.4 ML SYR SUBCUT SCH (12:04)
[2021-11-05] MEDS ORDERED: Polyethylene Glycol 3350 17 GM PACKET PO PRN (12:29)
[2021-11-05] MEDS ORDERED: Magnesium Hydroxide LIQ 30 ML UDC PO PRN (12:29)
[2021-11-05] MEDS ORDERED: Senna TAB 8.6 mg TAB PO PRN (12:29)
[2021-11-05] MEDS: Magnesium Hydroxide LIQ 30 ML UDC PO SCH ×2 (15:00→20:52)
[2021-11-05 15:42] LABS: Urine Creatinine Concentration 30.19 mg/dL
[2021-11-05] MEDS: oxyCODONE/Acetamin 5/325 mg TAB PO PRN (20:54)
[2021-11-05] MEDS ORDERED: Lidocaine 2% JELLY 6 ML Topical TOPICAL PRN (21:47)
[2021-11-06 06:02] LABS: ABS Lymphocytes 0.3 10^3/ul (1.0-4.8); ABS Monocytes 0.2 10^3/ul (0-0.8); Eosinophil % 0.2 %; Hematocrit 35 % (35-47); Hemoglobin 11.9 g/dL (12.0-16.0); Lymphocyte % 11.7 %; Mean Corpuscular HGB Conc 35 g/dL (31-36); Mean Corpuscular Hemoglobin 31 pg (27-31); Mean Corpuscular Volume 90 fL (80-97); Mean Platelet Volume 9.1 fL (7.4-10.4); Nucleated Red Blood Cells % 0.1; Platelet Count 153 10^3/uL (150-450); Red Blood Count 3.86 10^6 /uL (3.70-4.87); Red Cell Distribution Width 14 % (10-15); White Blood Count 2.5 10^3/uL (3.5-10.8)
[2021-11-06 06:56] LABS: Albumin 3.6 g/dL (3.2-5.2); Albumin/Globulin Ratio 1.4 (1-3); Calcium 8.6 mg/dL (8.6-10.3); Globulin 2.5 g/dL (2-4); Potassium 4.3 mmol/L (3.5-5.0); Total Bilirubin 0.3 mg/dL (0.2-1.0); Total Protein 6.1 g/dL (6.4-8.9); eGFR CKD-EPI 82.4 (>60)
[2021-11-06] MEDS: oxyCODONE/Acetamin 5/325 mg TAB PO PRN ×4 (06:59→21:27)
[2021-11-06] MEDS: Magnesium Hydroxide LIQ 30 ML UDC PO SCH ×2 (09:55→21:42)
[2021-11-06] MEDS: Remdesivir 100 mg Vial 100 MG in NS 0.9% 250 ml 230 ML IV SCH (09:56)
[2021-11-06] MEDS: Enoxaparin 40 MG/0.4 ML SYR SUBCUT SCH (11:09)
[2021-11-07 05:48] LABS: Hematocrit 38 % (35-47); Hemoglobin 12.9 g/dL (12.0-16.0); Mean Corpuscular HGB Conc 34 g/dL (31-36); Mean Corpuscular Hemoglobin 30 pg (27-31); Mean Corpuscular Volume 90 fL (80-97); Mean Platelet Volume 8.8 fL (7.4-10.4); Platelet Count 176 10^3/uL (150-450); Red Blood Count 4.26 10^6 /uL (3.70-4.87); Red Cell Distribution Width 14 % (10-15); White Blood Count 3.9 10^3/uL (3.5-10.8)
[2021-11-07 06:10] LABS: Calcium 9.2 mg/dL (8.6-10.3); Magnesium 2.1 mg/dL (1.9-2.7); Potassium 4.2 mmol/L (3.5-5.0); eGFR CKD-EPI 95.7 (>60)
[2021-11-07] MEDS ORDERED: Fluticasone NASAL SPRAY 50MCG 16 gm SPRAY BTL BOTH NARES SCH (09:00)
[2021-11-07] MEDS: oxyCODONE/Acetamin 5/325 mg TAB PO PRN (09:29)
[2021-11-07] MEDS: Remdesivir 100 mg Vial 100 MG in NS 0.9% 250 ml 230 ML IV SCH (09:29)
[2021-11-07] MEDS: Magnesium Hydroxide LIQ 30 ML UDC PO SCH (09:40)
[2021-11-07 11:08] VITALS: BP 124/71
[2021-11-07] MEDS: Enoxaparin 40 MG/0.4 ML SYR SUBCUT SCH (13:06)
== END 2021-11-07 17:30 | disposition home or self-care (01) ==
LOC: ED 02:08 → EDHOLD 02:08 → SUATTDRO 09:21 → MED 13:47
PROVIDERS: ADMIT Internal Medicine; ATTEND Internal Medicine

== ENCOUNTER 2022-10-31 07:30 | Inpatient (IN) ==
[2022-12-05] MEDS ORDERED: Lactated Ringers 1000 ml BAG 1,000 ML IV SCH ×2 (06:00→14:00)
[2022-12-05] MEDS ORDERED: Buffered Lidocaine 1% SYRIN 1 ml INTRADERM ONE (06:00)
[2022-12-05] MEDS ORDERED: Clindamycin 900 MG/50 **NS BAG 900 MG/50 ML BAG ONE (06:28)
[2022-12-05 06:39] LABS: Rapid COVID-19 Molecular Undetected (Undetected)
[2022-12-05] MEDS ORDERED: Midazolam 2 mg/2 ml VIAL 1 mg/ml 2 ml VIAL (2 mg) ONE (07:15)
[2022-12-05] MEDS ORDERED: ROPIVACAINE 5 MG/ML 30 ML BTL (0.5%) ONE (07:16)
[2022-12-05] MEDS ORDERED: Vancomycin 1,000 MG VIAL ONE ×3 (07:20→12:39)
[2022-12-05] MEDS ORDERED: Acetaminophen IV 1 GM/100ML 1,000 MG/100 ML BAG IV PRN (07:53)
[2022-12-05] MEDS ORDERED: fentaNYL 100 mcg/2 ml 50 MCG/ML VIAL IV PRN (07:53)
[2022-12-05] MEDS ORDERED: Naloxone 0.4 mg VIAL 0.4 mg/ml 1 ml VIAL IV PRN (07:53)
[2022-12-05] MEDS ORDERED: Ondansetron 4 mg VIAL 2 MG/ML 2 ml VIAL IV PRN ×2 (07:53→13:51)
[2022-12-05] MEDS ORDERED: HYDROmorphone 1 MG/1 ML SYRINGE IV PRN (07:53)
[2022-12-05] MEDS ORDERED: Phenylephrine IV 10 MG/ML 1 ml VIAL ONE (08:02)
[2022-12-05] MEDS ORDERED: Propofol 10 MG/ML 20 ML BTL ONE (08:02)
[2022-12-05] MEDS ORDERED: Rocuronium 50 mg VIAL 10 mg/ml 5 ml VIAL (50 mg) ONE ×2 (08:02→11:32)
[2022-12-05] MEDS ORDERED: Lidocaine 2% PF 5 ML VIAL ONE (08:02)
[2022-12-05] MEDS ORDERED: fentaNYL 100 mcg/2 ml 50 MCG/ML VIAL ONE (08:03)
[2022-12-05] MEDS ORDERED: Glycopyrrolate IV 0.2 MG/ML 1 ML VIAL ONE ×2 (08:09→08:21)
[2022-12-05] MEDS ORDERED: Sevoflurane BOTTLE ONE (09:09)
[2022-12-05] MEDS ORDERED: Mineral Oil Sterile, TOPICAL 25 ML BTL ONE (10:37)
[2022-12-05] MEDS ORDERED: Acetaminophen IV 1 GM/100ML 1,000 MG/100 ML BAG IV ONE (12:21)
[2022-12-05] MEDS ORDERED: Ondansetron 4 mg VIAL 2 MG/ML 2 ml VIAL ONE (12:22)
[2022-12-05] MEDS ORDERED: Dexamethasone IV 4 MG/ML VIAL 1 ml VIAL ONE (12:22)
[2022-12-05] MEDS ORDERED: Lactulose 30 ml UDC PO PRN (13:51)
[2022-12-05] MEDS ORDERED: Magnesium Hydroxide LIQ 30 ML UDC PO PRN (13:51)
[2022-12-05] MEDS ORDERED: Ondansetron ODT 4 mg TAB 4 MG TAB PO PRN (13:51)
[2022-12-05] MEDS ORDERED: Albuterol HFA INHALER 8 gm MDI INH PRN (16:52)
[2022-12-05] MEDS: Lactated Ringers 1000 ml BAG 1,000 ML IV SCH (17:26)
[2022-12-05] MEDS: Magnesium Hydroxide LIQ 30 ML UDC PO SCH (17:36)
[2022-12-05] MEDS: Clindamycin 600 MG/NS BAG(*) 600 MG/50 ML BAG IV SCH (17:39)
[2022-12-05] MEDS: oxyCODONE SR 20 mg TAB PO SCH (20:53)
[2022-12-05] MEDS ORDERED: oxyCODONE SR 15 mg TAB PO SCH (21:00)
[2022-12-05] MEDS: Morphine 2 MG/ML SYRINGE IV PRN (23:39)
[2022-12-06] MEDS: Lactated Ringers 1000 ml BAG 1,000 ML IV SCH (02:06)
[2022-12-06] MEDS: Clindamycin 600 MG/NS BAG(*) 600 MG/50 ML BAG IV SCH ×2 (02:07→08:38)
[2022-12-06] MEDS: Morphine 2 MG/ML SYRINGE IV PRN ×2 (03:38→10:53)
[2022-12-06] MEDS: Magnesium Hydroxide LIQ 30 ML UDC PO SCH ×2 (05:12→18:35)
[2022-12-06] MEDS ORDERED: Polyethylene Glycol 3350 17 GM PACKET PO PRN (06:00)
[2022-12-06 06:24] LABS: Hemoglobin 9.9 g/dL (11.5-14.3); Mean Platelet Volume 9.2 fL (7.5-11.2); Platelet Count 159 10^3/uL (150-450)
[2022-12-06 06:55] LABS: Calcium 8.5 mg/dL (8.6-10.3); Creatinine, Serum 0.8 mg/dL (0.51-0.95); Magnesium 1.9 mg/dL (1.9-2.7); Potassium 3.8 mmol/L (3.5-5.0); eGFR CKD-EPI 80.7 (>60)
[2022-12-06] MEDS: Aspirin EC 81 mg TAB.EC (enteric coated) PO SCH (08:43)
[2022-12-06] MEDS: oxyCODONE SR 20 mg TAB PO SCH (08:43)
[2022-12-06] MEDS: Vitamin THERAPEUTIC TAB PO SCH (08:44)
[2022-12-06] MEDS ORDERED: Lactulose 30 ml UDC PO ONE (19:02)
[2022-12-06] MEDS: Enoxaparin 40 MG/0.4 ML SYR SUBCUT SCH (20:19)
[2022-12-06] MEDS: oxyCODONE SR 15 mg TAB PO SCH (23:00)
[2022-12-07 06:43] LABS: ABS Eosinophils 0.1 10^3/uL (0.0-0.5); ABS Monocytes 0.5 10^3/uL (0.0-0.9); ABS Neutrophils 3.3 10^3/uL (1.5-7.6); Eosinophil % 2.8 %; Hematocrit 26.7 % (35-45); Hemoglobin 9.2 g/dL (11.5-14.3); Lymphocyte % 20.4 %; Mean Corpuscular Hemoglobin 30.8 pg (27-33); Mean Corpuscular Hgb Conc 34.3 g/dL (31-36); Mean Corpuscular Volume 89.8 fL (80-97); Mean Platelet Volume 9.5 fL (7.5-11.2); Platelet Count 156 10^3/uL (150-450); Red Blood Count 2.98 10^6/uL (3.63-4.92); Red Cell Distribution Width 14.3 % (12-17)
[2022-12-07] MEDS: Magnesium Hydroxide LIQ 30 ML UDC PO SCH ×2 (07:41→17:35)
[2022-12-07 07:51] LABS: Creatinine, Serum 0.75 mg/dL (0.51-0.95); Magnesium 1.9 mg/dL (1.9-2.7); Potassium 3.6 mmol/L (3.5-5.0); eGFR CKD-EPI 87.2 (>60)
[2022-12-07] MEDS: Vitamin THERAPEUTIC TAB PO SCH (09:25)
[2022-12-07] MEDS: Aspirin EC 81 mg TAB.EC (enteric coated) PO SCH (09:28)
[2022-12-07] MEDS: oxyCODONE SR 15 mg TAB PO SCH ×2 (09:29→21:09)
[2022-12-07] MEDS ORDERED: Vancomycin 1,000 MG in NS 0.9% 250 ml 250 ML IVPB ONE (15:38)
[2022-12-07] MEDS ORDERED: Vancomycin per Pharmacy 1 EA NOTE FOLLOW UP PRN (15:52)
[2022-12-07] MEDS: Enoxaparin 40 MG/0.4 ML SYR SUBCUT SCH (21:09)
[2022-12-08 05:47] LABS: ABS Eosinophils 0.1 10^3/uL (0.0-0.5); ABS Monocytes 0.5 10^3/uL (0.0-0.9); ABS Neutrophils 3.9 10^3/uL (1.5-7.6); Eosinophil % 2.5 %; Hematocrit 27.9 % (35-45); Hemoglobin 9.8 g/dL (11.5-14.3); Lymphocyte % 18.1 %; Mean Corpuscular Hemoglobin 31.1 pg (27-33); Mean Platelet Volume 8.9 fL (7.5-11.2); Platelet Count 179 10^3/uL (150-450); Red Blood Count 3.14 10^6/uL (3.63-4.92); Red Cell Distribution Width 14.2 % (12-17); White Blood Count 5.6 10^3/uL (3.8-11.8)
[2022-12-08] MEDS: Magnesium Hydroxide LIQ 30 ML UDC PO SCH ×2 (05:50→17:19)
[2022-12-08] MEDS: Vancomycin 1000 MG in NS 0.9% 250 ML IVPB SCH ×2 (05:51→17:19)
[2022-12-08 06:05] LABS: Calcium 8.5 mg/dL (8.6-10.3); Creatinine, Serum 0.72 mg/dL (0.51-0.95); Potassium 3.8 mmol/L (3.5-5.0); eGFR CKD-EPI 91.6 (>60)
[2022-12-08] MEDS: oxyCODONE SR 15 mg TAB PO SCH ×2 (08:11→20:07)
[2022-12-08] MEDS: Vitamin THERAPEUTIC TAB PO SCH (08:11)
[2022-12-08] MEDS: Aspirin EC 81 mg TAB.EC (enteric coated) PO SCH (08:12)
[2022-12-08] MEDS: Enoxaparin 40 MG/0.4 ML SYR SUBCUT SCH (20:07)
[2022-12-09] MEDS ORDERED: Vancomycin Trough Check NOTE FOLLOW UP ONE (05:30)
[2022-12-09 05:50] LABS: ABS Eosinophils 0.2 10^3/uL (0.0-0.5); ABS Monocytes 0.4 10^3/uL (0.0-0.9); ABS Neutrophils 2.8 10^3/uL (1.5-7.6); Eosinophil % 4.6 %; Hematocrit 26.1 % (35-45); Hemoglobin 9.1 g/dL (11.5-14.3); Lymphocyte % 23.2 %; Mean Corpuscular Hemoglobin 30.7 pg (27-33); Mean Corpuscular Hgb Conc 34.8 g/dL (31-36); Mean Corpuscular Volume 88.4 fL (80-97); Mean Platelet Volume 8.7 fL (7.5-11.2); Platelet Count 184 10^3/uL (150-450); Red Blood Count 2.96 10^6/uL (3.63-4.92); White Blood Count 4.4 10^3/uL (3.8-11.8)
[2022-12-09] MEDS: Vancomycin 1000 MG in NS 0.9% 250 ML IVPB SCH ×2 (07:28→17:56)
[2022-12-09] MEDS: Aspirin EC 81 mg TAB.EC (enteric coated) PO SCH (07:32)
[2022-12-09] MEDS: Vitamin THERAPEUTIC TAB PO SCH (07:33)
[2022-12-09] MEDS: oxyCODONE SR 15 mg TAB PO SCH ×2 (07:33→21:34)
[2022-12-09] MEDS: Magnesium Hydroxide LIQ 30 ML UDC PO SCH ×2 (07:42→18:03)
[2022-12-09] MEDS: Enoxaparin 40 MG/0.4 ML SYR SUBCUT SCH (21:33)
[2022-12-10] MEDS: Magnesium Hydroxide LIQ 30 ML UDC PO SCH ×2 (05:25→19:19)
[2022-12-10] MEDS: Vancomycin 1000 MG in NS 0.9% 250 ML IVPB SCH ×2 (05:25→17:55)
[2022-12-10] MEDS: Vitamin THERAPEUTIC TAB PO SCH (08:44)
[2022-12-10] MEDS: Aspirin EC 81 mg TAB.EC (enteric coated) PO SCH (08:44)
[2022-12-10] MEDS: oxyCODONE SR 15 mg TAB PO SCH ×2 (08:44→20:40)
[2022-12-10] MEDS: Enoxaparin 40 MG/0.4 ML SYR SUBCUT SCH (20:40)
[2022-12-11] MEDS ORDERED: Vancomycin Trough Check NOTE FOLLOW UP ONE (05:30)
[2022-12-11] MEDS: Magnesium Hydroxide LIQ 30 ML UDC PO SCH (06:25)
[2022-12-11 06:32] VITALS: BP 163/74
[2022-12-11 06:58] LABS: Calcium 8.8 mg/dL (8.6-10.3); Creatinine, Serum 0.79 mg/dL (0.51-0.95); Magnesium 1.8 mg/dL (1.9-2.7); Potassium 3.5 mmol/L (3.5-5.0); eGFR CKD-EPI 81.9 (>60)
[2022-12-11 07:07] LABS: ABS Eosinophils 0.3 10^3/uL (0.0-0.5); ABS Lymphocytes 1.1 10^3/uL (1.0-4.8); ABS Monocytes 0.4 10^3/uL (0.0-0.9); ABS Neutrophils 2.5 10^3/uL (1.5-7.6); Eosinophil % 7.6 %; Hematocrit 25.8 % (35-45); Hemoglobin 9.1 g/dL (11.5-14.3); Lymphocyte % 25.6 %; Mean Corpuscular Hgb Conc 35.2 g/dL (31-36); Mean Corpuscular Volume 88.2 fL (80-97); Mean Platelet Volume 8.7 fL (7.5-11.2); Platelet Count 240 10^3/uL (150-450); Red Blood Count 2.93 10^6/uL (3.63-4.92); White Blood Count 4.4 10^3/uL (3.8-11.8)
[2022-12-11] MEDS: Vitamin THERAPEUTIC TAB PO SCH (08:09)
[2022-12-11] MEDS: oxyCODONE SR 15 mg TAB PO SCH (08:09)
[2022-12-11] MEDS: Aspirin EC 81 mg TAB.EC (enteric coated) PO SCH (08:09)
[2022-12-11] MEDS: Vancomycin 1000 MG in NS 0.9% 250 ML IVPB SCH (08:13)
[2022-12-14] MEDS ORDERED: Vancomycin Trough Check NOTE FOLLOW UP ONE (06:00)
== END 2022-12-11 13:55 | DRG 494 ==
LOC: AA 12-05 05:52 → INTOOBSV 12-05 05:52 → SSU 12-05 16:25
PROVIDERS: ADMIT Orthopaedic Surgery; ATTEND Orthopaedic Surgery

== ENCOUNTER 2023-02-06 07:30 | Inpatient (IN) ==
[2023-02-22] MEDS ORDERED: Ondansetron 4 mg VIAL 2 MG/ML 2 ml VIAL IV PRN (11:09)
[2023-02-22] MEDS ORDERED: Naloxone 0.4 mg VIAL 0.4 mg/ml 1 ml VIAL IV PRN (11:09)
[2023-02-22] MEDS ORDERED: HYDROmorphone 1 MG/1 ML SYRINGE IV PRN (11:09)
[2023-02-22] MEDS ORDERED: fentaNYL 100 mcg/2 ml 50 MCG/ML VIAL IV PRN (11:09)
[2023-02-23] MEDS ORDERED: Buffered Lidocaine 1% SYRIN 1 ml INTRADERM ONE (11:09)
[2023-02-23] MEDS ORDERED: Lactated Ringers 1000 ml BAG 1,000 ML IV SCH (12:00)
[2023-02-25] MEDS ORDERED: Dexamethasone IV 4 MG/ML VIAL 1 ml VIAL ONE ×3 (06:41→16:40)
[2023-02-25 06:57] LABS: Rapid COVID-19 Molecular Undetected (Undetected)
[2023-02-25] MEDS ORDERED: Lidocaine 1% MPF 5 ML VIAL ONE (07:02)
[2023-02-25] MEDS ORDERED: Ropivacaine 5 MG/ML 20 ML VIAL 0.5% (100 MG) ONE (07:02)
[2023-02-25] MEDS ORDERED: Clindamycin 900 MG/50 **NS BAG 900 MG/50 ML BAG ONE (07:04)
[2023-02-25] MEDS ORDERED: Vancomycin 1,000 MG VIAL ONE ×2 (07:06→12:56)
[2023-02-25] MEDS ORDERED: Lidocaine 2% PF 5 ML VIAL ONE ×2 (07:14→11:51)
[2023-02-25] MEDS ORDERED: fentaNYL 100 mcg/2 ml 50 MCG/ML VIAL ONE ×3 (07:14→17:10)
[2023-02-25] MEDS ORDERED: Ondansetron 4 mg VIAL 2 MG/ML 2 ml VIAL ONE ×2 (07:14→16:40)
[2023-02-25] MEDS ORDERED: Rocuronium 50 mg VIAL 10 mg/ml 5 ml VIAL (50 mg) ONE ×5 (07:14→19:48)
[2023-02-25] MEDS ORDERED: Propofol 10 MG/ML 20 ML BTL ONE ×3 (07:14→21:01)
[2023-02-25] MEDS ORDERED: Midazolam 2 mg/2 ml VIAL 1 mg/ml 2 ml VIAL (2 mg) ONE ×2 (07:37→11:51)
[2023-02-25] MEDS ORDERED: Glycopyrrolate IV 0.2 MG/ML 1 ML VIAL ONE ×2 (16:46→17:34)
[2023-02-25] MEDS ORDERED: Phenylephrine IV 10 MG/ML 1 ml VIAL ONE (16:46)
[2023-02-25] MEDS ORDERED: Magnesium Hydroxide LIQ 30 ML UDC PO PRN (16:58)
[2023-02-25] MEDS ORDERED: Ondansetron ODT 4 mg TAB 4 MG TAB PO PRN (16:58)
[2023-02-25] MEDS ORDERED: Lactulose 30 ml UDC PO PRN (16:58)
[2023-02-25] MEDS ORDERED: Ondansetron 4 mg VIAL 2 MG/ML 2 ml VIAL IV PRN (16:58)
[2023-02-25] MEDS ORDERED: Clindamycin 600 MG/D5W BAG 600 MG/50 ML BAG IV SCH ×2 (17:00→21:40)
[2023-02-25] MEDS ORDERED: AUTO INJECTOR IM PRN (17:05)
[2023-02-25] MEDS ORDERED: EPINEPHRINE 0.3 MG/0.3 ML IM PRN (17:05)
[2023-02-25] MEDS ORDERED: Albuterol HFA INHALER 8 gm MDI INH PRN (17:05)
[2023-02-25] MEDS ORDERED: Polyethylene Glycol 3350 17 GM PACKET PO PRN (17:16)
[2023-02-25] MEDS ORDERED: Albumin Human 25% 0 GM/0 ML BTL IV ONE (18:44)
[2023-02-25] MEDS ORDERED: Albumin Human 5% 12.5 GM/250 ML BTL IV ONE (18:45)
[2023-02-25] MEDS ORDERED: Bupivacaine 0.25% SDV 30 ML ONE (21:13)
[2023-02-25] MEDS: oxyCODONE SR 15 mg TAB PO SCH (23:58)
[2023-02-26] MEDS: Magnesium Hydroxide LIQ 30 ML UDC PO SCH ×3 (02:07→20:46)
[2023-02-26] MEDS: Lactated Ringers 1000 ml BAG 1,000 ML IV SCH ×2 (02:35→13:19)
[2023-02-26] MEDS: Aspirin EC 81 mg TAB.EC (enteric coated) PO SCH (07:48)
[2023-02-26] MEDS: oxyCODONE SR 15 mg TAB PO SCH (07:48)
[2023-02-26] MEDS: Vitamin THERAPEUTIC TAB PO SCH (07:48)
[2023-02-26 08:50] LABS: Platelet Count 186 10^3/uL (150-450)
[2023-02-26 09:10] LABS: Calcium 6.6 mg/dL (8.6-10.3); Creatinine, Serum 1.21 mg/dL (0.51-0.95); Magnesium 1.6 mg/dL (1.9-2.7); Potassium 3.9 mmol/L (3.5-5.0); eGFR CKD-EPI 49.1 (>60)
[2023-02-26] MEDS ORDERED: Magnesium Sulf 4 GM/100 ML IV 4,000 MG/100 ML BAG IVPB ONE (09:20)
[2023-02-26 09:27] LABS: Hematocrit 25.5 % (35-45); Hemoglobin 8.6 g/dL (11.5-14.3); Mean Platelet Volume 9.2 fL (7.5-11.2)
[2023-02-26] MEDS ORDERED: Enoxaparin 40 MG/0.4 ML SYR SUBCUT SCH (12:00)
[2023-02-26] MEDS: Enoxaparin 40 MG/0.4 ML SYR SUBCUT SCH (14:31)
[2023-02-26 16:34] LABS: Calcium 6.9 mg/dL (8.6-10.3); Creatinine, Serum 1.04 mg/dL (0.51-0.95); Magnesium 2.9 mg/dL (1.9-2.7); Potassium 3.6 mmol/L (3.5-5.0); eGFR CKD-EPI 58.9 (>60)
[2023-02-26] MEDS: Senna TAB 8.6 mg TAB PO SCH (20:39)
[2023-02-26] MEDS: oxyCODONE SR 20 mg TAB PO SCH (20:45)
[2023-02-27 06:31] LABS: Hematocrit 25.9 % (35-45); Hemoglobin 8.7 g/dL (11.5-14.3); Mean Corpuscular Hemoglobin 28.3 pg (27-33); Mean Corpuscular Hgb Conc 33.6 g/dL (31-36); Mean Corpuscular Volume 84.4 fL (80-97); Mean Platelet Volume 9.2 fL (7.5-11.2); Platelet Count 185 10^3/uL (150-450); Red Blood Count 3.07 10^6/uL (3.63-4.92); Red Cell Distribution Width 16.8 % (12-17); White Blood Count 6.1 10^3/uL (3.8-11.8)
[2023-02-27 06:51] LABS: Creatinine, Serum 0.75 mg/dL (0.51-0.95); Magnesium 2.1 mg/dL (1.9-2.7); Potassium 3.1 mmol/L (3.5-5.0); eGFR CKD-EPI 87.2 (>60)
[2023-02-27] MEDS: Aspirin EC 81 mg TAB.EC (enteric coated) PO SCH (09:09)
[2023-02-27] MEDS: oxyCODONE SR 20 mg TAB PO SCH ×2 (09:09→20:44)
[2023-02-27] MEDS: Vitamin THERAPEUTIC TAB PO SCH (09:09)
[2023-02-27] MEDS: Magnesium Hydroxide LIQ 30 ML UDC PO SCH ×2 (09:11→21:51)
[2023-02-27] MEDS ORDERED: Potassium Chlor 20 meq TAB.ER PO ONE (09:22)
[2023-02-27 11:08] LABS: % Iron Saturation 6 % (15-55); .Transferrin 227 mg/dL (203-362); Iron < 20 ug/dL (50-212); Total Iron Binding Capacity 318 mcg/dL (250-450); Unsaturated Iron Binding 298 ug/dL
[2023-02-27 11:24] LABS: Ferritin 37.9 ng/mL (11-307)
[2023-02-27] MEDS: Enoxaparin 40 MG/0.4 ML SYR SUBCUT SCH (13:25)
[2023-02-27] MEDS: Clindamycin 600 MG/D5W BAG 600 MG/50 ML BAG IV SCH ×2 (13:25→21:10)
[2023-02-27] MEDS: Senna TAB 8.6 mg TAB PO SCH (20:41)
[2023-02-27] MEDS ORDERED: EPINEPHrine Anaphylaxis SYR CERTADOSE SYR KIT IM PRN (22:17)
[2023-02-28] MEDS: Clindamycin 600 MG/D5W BAG 600 MG/50 ML BAG IV SCH (03:36)
[2023-02-28] MEDS: Vitamin THERAPEUTIC TAB PO SCH (08:35)
[2023-02-28] MEDS: oxyCODONE SR 20 mg TAB PO SCH (08:35)
[2023-02-28] MEDS: Aspirin EC 81 mg TAB.EC (enteric coated) PO SCH (08:35)
[2023-02-28] MEDS: Magnesium Hydroxide LIQ 30 ML UDC PO SCH (08:36)
[2023-02-28] MEDS ORDERED: Iron Sucrose 20 MG/ML 5 ML VIAL IV PUSH SCH (09:00)
[2023-02-28] MEDS ORDERED: Iron Sucrose 200 MG in NS 0.9% 100 ml IVPB SCH (09:00)
[2023-02-28 09:05] LABS: Calcium 7.2 mg/dL (8.6-10.3); Creatinine, Serum 0.83 mg/dL (0.51-0.95); Potassium 3.5 mmol/L (3.5-5.0); eGFR CKD-EPI 77.2 (>60)
[2023-02-28 09:21] LABS: Platelet Count 186 10^3/uL (150-450)
[2023-02-28 10:24] VITALS: BP 129/86
[2023-02-28 10:31] LABS: Hematocrit 26.3 % (35-45); Hemoglobin 8.9 g/dL (11.5-14.3); Mean Platelet Volume 9.2 fL (7.5-11.2)
== END 2023-02-28 13:20 | disposition home or self-care (01) | DRG 493 ==
LOC: AA 02-25 05:37 → SSU 02-25 23:11
PROVIDERS: ADMIT Orthopaedic Surgery; ATTEND Orthopaedic Surgery